=== PATIENT | female | born 1965 | race Caucasian/White ===

== ENCOUNTER 2016-11-15 23:05 | Emergency (ER) | payer BC ==
[2016-11-15] MEDS ORDERED: METHYLPREDNISOLONE PF 125MG/VIAL IVP ONE (23:39)
[2016-11-15] MEDS ORDERED: ALBUTEROL SULFATE (0.083%) 2.5 MG/3 ML NEB INH ONE (23:40)
[2016-11-15] MEDS ORDERED: IPRATROPIUM/ALBUTEROL (0.5MG/3MG) NEB INH ONE (23:51)
[2016-11-16 00:12] LABS: BASO % 0.6 % (0-6); EOS % 0.7 % (0-6); GRAN % 79.7 % (47-80); HEMATOCRIT 41.7 % (35.0-47.0); MEAN CELL VOLUME 90.3 fl (81-97); MEAN CORPUSCULAR HEMOGLOBIN 30.3 pg (27-33); MEAN CORPUSCULAR HGB CONC 33.6 g/dl (32-36); MEAN PLATELET VOLUME 10.1 fl (7.4-10.4); PLATELET COUNT 179 K/uL (130-400); RED BLOOD COUNT 4.62 M/uL (3.80-5.40); RED CELL DISTRIBUTION WIDTH 13.4 % (11.5-14.5); WHITE BLOOD COUNT W/O DIFF 7.2 K/uL (4.2-12.2)
[2016-11-16 00:25] LABS: ALB/GLOB RATIO 1.4 (1.1-1.8); ALBUMIN 4.1 gm/dL (3.5-5.0); ALKALINE PHOSPHATASE 85 U/L (38-126); ALT/SGPT 29 U/L (9-52); AST/SGOT 25 U/L (14-36); BILIRUBIN,TOTAL 0.69 mg/dL (0.2-1.3); BLOOD UREA NITROGEN 16 mg/dL (7-17); CREATININE 0.9 mg/dL (0.52-1.04); EST GLOMERULAR FILTRATION RATE > 60 ml/min; GLUCOSE,RANDOM 104 mg/dL (70-110); TOTAL PROTEIN 7.1 gm/dL (6.3-8.2)
[2016-11-16] MEDS ORDERED: ALBUTEROL SULFATE (0.083%) 2.5 MG/3 ML NEB INH ONE ×3 (01:21→01:49)
--- NOTE | 2016-11-16 01:28 | Emergency Department Record ---
History of Present Illness - General Chief Complaint: Difficulty Breathing Stated Complaint: SOB Time Seen by Provider: 11/15/16 23:36 Source: Patient Mode of Arrival: Wheelchair Limitations: No limitations - History of Present Illness Initial Comments: pt has been increasingly sob feeling like she cant get her air out. she has a hx of asthma and copd. she had a port replaced recently for abx Complaint: Shortness of breath Onset/Timin -: Days(s) Severity: Mild Quality: Other Consistency: Constant Improves With: Upright position Worsens With: Coughing Known History Of: Asthma, COPD Context: Recent travel Associated Symptoms: Chest pain, Cough Treatments Prior to Arrival: None - Related Data Home Medications Medication Instructions Recorded Confirmed Last Taken Ceftaroline Fosamil Acetate 600 mg IV BID 11/15/16 11/15/16 Unknown [Teflaro] Estradiol [Vivelle-Dot] 0.1 mg TOP ASDIR 11/15/16 11/15/16 Unknown IgG/Hyaluronidase,Recombinant 20 gm IV ASDIR 11/15/16 11/15/16 Unknown [Hyqvia 20 gm/1,600 Unit Vial] Metoprolol Succinate [Metoprolol 25 mg PO BID 11/15/16 11/15/16 Unknown Succinate] Previous Rx's Medication Instructions Recorded Prednisone [Prednisone 20Mg] 20 mg PO BIDPC #8 tab 11/16/16 Allergies Allergy/AdvReac Type Severity Reaction Status Date / Time azithromycin [From Zithromax] Allergy other Verified 11/15/16 23:23 erythromycin base Allergy other Verified 11/15/16 23:23 Sulfa (Sulfonamide Allergy PT UNSURE Verified 11/15/16 23:23 Antibiotics) OF REACTION Travel Screening - Travel/Exposure Within Last 30 Days Have you traveled within the last 30 days?: No - Travel/Exposure Within Last Year Have you traveled outside the [place] in the last year?: No - Additonal Travel Details Have you been exposed to anyone with a communicable illness?: No - Travel Symptoms Symptom Screening: None Review of Systems Reviewed: No additional complaints except as noted below Constitutional: Reports: As per HPI. Denies: Chills, Fever, Malaise, Night sweats, Weakness, Weight change Eyes: Reports: As per HPI. Denies: Eye discharge, Eye pain, Photophobia, Vision change ENT: Reports: As per HPI. Denies: Congestion, Dental pain, Ear pain, Epistaxis , Hearing loss, Throat pain Respiratory: Reports: As per HPI. Denies: Cough, Dyspnea, Hemoptysis, Stridor, Wheezes Cardiovascular: Reports: As per HPI. Denies: Arrhythmia, Chest pain, Dyspnea on exertion, Edema, Murmurs, Orthopnea, Palpitations, Paroxysmal nocturnal dyspnea, Rheumatic Fever, Syncope Endocrine: Reports: As per HPI. Denies: Fatigue, Heat or cold intolerance, Polydipsia, Polyuria Gastrointestinal: Reports: As per HPI. Denies: Abdominal pain, Constipation, Diarrhea, Hematemesis, Hematochezia, Melena, Nausea, Vomiting Genitourinary: Reports: As per HPI. Denies: Abnormal menses, Discharge, Dyspareunia, Dysuria, Frequency, Hematuria, Incontinence, Retention, Urgency Musculoskeletal: Reports: As per HPI. Denies: Arthralgia, Back pain, Gout, Joint swelling, Myalgia, Neck pain Skin: Reports: As per HPI. Denies: Bruising, Change in color, Change in hair/ nails, Lesions, Pruritus, Rash Neurological: Reports: As per HPI. Denies: Abnormal gait, Confusion, Headache, Numbness, Paresthesias, Seizure, Tingling, Tremors, Vertigo, Weakness Psychiatric: Reports: As per HPI. Denies: Anxiety, Auditory hallucinations, Depression, Homicidal thoughts, Suicidal thoughts, Visual hallucinations Hematological/Lymphatic: Reports: As per HPI. Denies: Anemia, Blood Clots, Easy bleeding, Easy bruising, Swollen glands Past Medical History - SOCIAL HISTORY Smoking Status: Current every day smoker Alcohol Use: None Drug Use: None - RESPIRATORY Hx Respiratory Disorders: Yes Hx Asthma: Yes Hx COPD: Yes Hx Pneumonia: Yes - CARDIOVASCULAR Hx Cardio Disorders: Yes Comment:: torsades - NEURO Hx Neuro Disorders: No - GI Hx GI Disorders: No - Hx Genitourinary Disorders: No - ENDOCRINE Hx Endocrine Disorders: No - MUSCULOSKELETAL Hx Musculoskeletal Disorders: No - HEMATOLOGY/ONCOLOGY Hx Hematology/Oncology Disorders: Yes Comment:: Igg infusions Family Medical History Any Significant Family History?: No Physical Exam - General General Appearance: Alert, Oriented x3, Cooperative, Mild distress - Head Head exam: Normal inspection - Eye Eye exam: Normal appearance, PERRL, EOMI Pupils: Normal accommodation - ENT ENT exam: Normal exam, Mucous membranes moist, Normal external ear exam, Normal orophraynx Ear exam: Normal external inspection. negative: External canal tenderness Nasal Exam: Normal inspection. negative: Discharge, Sinus tenderness Mouth exam: Normal external inspection, Tongue normal Teeth exam: Normal inspection. negative: Dental caries Throat exam: Normal inspection. negative: Tonsillar erythema, Tonsillar exudate - Neck Neck exam: Normal inspection, Full ROM. negative: Tenderness - Respiratory Respiratory exam: Accessory muscle use, Respiratory distress, Wheezes - Cardiovascular Cardiovascular Exam: Regular rate, Normal rhythm, Normal heart sounds - GI/Abdominal GI/Abdominal exam: Soft, Normal bowel sounds. negative: Tenderness - Rectal Rectal exam: Deferred - exam: Deferred - Extremities Extremities exam: Normal inspection, Full ROM, Normal capillary refill. negative: Tenderness - Back Back exam: Reports: Normal inspection, Full ROM. Denies: Muscle spasm, Rash noted, Tenderness - Neurological Neurological exam: Alert, CN II-XII intact, Normal gait, Oriented X3 - Psychiatric Psychiatric exam: Normal affect, Normal mood - Skin Skin exam: Dry, Intact, Normal color, Warm Course Vital Signs 11/15/16 11/15/16 11/15/16 23:09 23:10 23:26 Temperature 98.8 F 99.0 F Pulse Rate 72 Pulse Rate [ 75 Pulse Ox Probe] Respiratory 28 H 16 Rate Blood Pressure 133/111 [Right Arm] Pulse Ox 98 11/15/16 11/16/16 11/16/16 23:40 00:08 00:35 Temperature Pulse Rate 75 Pulse Rate [ 83 78 Pulse Ox Probe] Respiratory 16 20 22 Rate Blood Pressure 127/66 [Right Arm] Pulse Ox 94 L 98 - Reevaluation(s) Reevaluation #1: 11/16/16 01:27 pt feels better Medical Decision Making - Lab Data Result diagrams: 11/15/16 23:58 11/15/16 23:58 Lab Results 11/15/16 11/15/16 11/15/16 Range/Units 23:58 23:58 23:58 WBC 7.2 (4.2-12.2) K/uL RBC 4.62 (3.80-5.40) M/uL Hgb 14.0 (11.6-16.0) gm/dl Hct 41.7 (35.0-47.0) % MCV 90.3 (81-97) fl MCH 30.3 (27-33) pg MCHC 33.6 (32-36) g/dl RDW 13.4 (11.5-14.5) % Plt Count 179 (130-400) K/uL MPV 10.1 (7.4-10.4) fl Gran % 79.7 (47-80) % Lymphocytes % 11.0 L (16-45) % Monocytes % 8.0 (0-9) % Eosinophils % 0.7 (0-6) % Basophils % 0.6 (0-6) % D-Dimer 0.48 (0-0.59) mg/L FEU Sodium 135 L (136-145) mmol/L Potassium 3.4 L (3.5-5.1) mmol/L Chloride 100 (98-107) mmol/L Carbon Dioxide 23.0 (22-30) mmol/L Anion Gap 12.0 (7-16) BUN 16 (7-17) mg/dL Creatinine 0.9 (0.52-1.04) mg/dL Estimated GFR > 60 ml/min Random Glucose 104 (70-110) mg/dL Calcium 8.8 (8.5-10.1) mg/dL Total Bilirubin 0.69 (0.2-1.3) mg/dL AST 25 (14-36) U/L ALT 29 (9-52) U/L Alkaline Phosphatase 85 (38-126) U/L NT-Pro-B Natriuret Pep (<125) pg/mL Total Protein 7.1 (6.3-8.2) gm/dL Albumin 4.1 (3.5-5.0) gm/dL Globulin 3.0 (1.4-4.8) gm/dL Albumin/Globulin Ratio 1.4 (1.1-1.8) 11/15/16 Range/Units 23:58 WBC (4.2-12.2) K/uL RBC (3.80-5.40) M/uL Hgb (11.6-16.0) gm/dl Hct (35.0-47.0) % MCV (81-97) fl MCH (27-33) pg MCHC (32-36) g/dl RDW (11.5-14.5) % Plt Count (130-400) K/uL MPV (7.4-10.4) fl Gran % (47-80) % Lymphocytes % (16-45) % Monocytes % (0-9) % Eosinophils % (0-6) % Basophils % (0-6) % D-Dimer (0-0.59) mg/L FEU Sodium (136-145) mmol/L Potassium (3.5-5.1) mmol/L Chloride (98-107) mmol/L Carbon Dioxide (22-30) mmol/L Anion Gap (7-16) BUN (7-17) mg/dL Creatinine (0.52-1.04) mg/dL Estimated GFR ml/min Random Glucose (70-110) mg/dL Calcium (8.5-10.1) mg/dL Total Bilirubin (0.2-1.3) mg/dL AST (14-36) U/L ALT (9-52) U/L Alkaline Phosphatase (38-126) U/L NT-Pro-B Natriuret Pep 471.00 H (<125) pg/mL Total Protein (6.3-8.2) gm/dL Albumin (3.5-5.0) gm/dL Globulin (1.4-4.8) gm/dL Albumin/Globulin Ratio (1.1-1.8) Disposition Disposition: Discharge Clinical Impression: Chronic obstructive asthma with exacerbation Disposition: Home, Self-Care Condition: (1) Good Instructions: Chronic Obstructive Pulmonary Disease (ED), Asthma (ED) Additional Instructions: follow up with family doctor on friday. return sooner if worse Prescriptions: Prednisone [Prednisone 20Mg] 20 mg PO BIDPC #8 tab Forms: Patient Portal Access
--- NOTE | 2016-11-19 15:15 | RADIOLOGY REPORT ---
EXAM: CHEST, TWO VIEWS HISTORY: PATIENT HAS SHORTNESS OF BREATH. PATIENT STATES SHE HAS A HISTORY OF PULMONARY FIBROSIS. TECHNIQUE: Two views of the chest were provided without comparison studies. FINDINGS: The cardiomediastinal silhouette is within normal limits for size and contour. The wilber appear unremarkable. There is no radiographic evidence of a focal infiltrate or pleural effusion. Hyperinflation is identified with retrosternal air trapping. These findings suggest COPD changes. Subtle pleural based linear densities are identified within the lung bases which may also indicate pulmonary fibrosis, however, if there is further clinical concern then a high resolution CT scan of the chest can be obtained for further evaluation. Left anterior chest wall port catheter is identified entering the region of the left subclavian vein. The distal tip of the catheter is identified in the region of the superior vena cava. No pneumothorax is noted. No vocal consolidation, pleural effusion or pneumothorax is noted. IMPRESSION: COPD CHANGES ARE IDENTIFIED WITHOUT RADIOGRAPHIC EVIDENCE OF AN ACUTE INTRATHORACIC PROCESS. THERE IS A POSSIBILITY OF PULMONARY FIBROSIS, HOWEVER, IF THERE IS FURTHER CLINICAL CONCERN THEN A HIGH RESOLUTION CT SCAN OF THE CHEST CAN BE OBTAINED FOR FURTHER EVALUATION. JOB NUMBER: [id number] [facility]
== END 2016-11-16 01:53 | disposition home or self-care (01) ==
LOC: ER 23:05
DX: J44.1 Chronic obstructive pulmonary disease with (acute) exacerbation (principal); R06.02 Shortness of breath; F17.210 Nicotine dependence, cigarettes, uncomplicated
CPT/HCPCS: 71020; 80053; 83880; 85025; 85379; 93005; 93010; 94640; 96374; 99284; J2930; J7613

== ENCOUNTER 2018-10-17 15:16 | Emergency (ER) | payer BC ==
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
[2018-10-17] MEDS ORDERED: HYDROCODONE/APAP 5/325MG TABLET PO ONE ×2 (17:04)
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
== END 2018-10-17 17:28 | disposition home or self-care (01) ==
LOC: ER 15:16
DX: S66.922A Laceration of unspecified muscle, fascia and tendon at wrist and hand level, left hand, initial encounter (principal); Y92.009 Unspecified place in unspecified non-institutional (private) residence as the place of occurrence of the external cause; F17.210 Nicotine dependence, cigarettes, uncomplicated
CPT/HCPCS: 12032; 99283; 99284